=== PATIENT | male | born 1990 | race Caucasian/White ===

== ENCOUNTER 2019-11-15 02:04 | Observation (INO) | payer OTHER ==
[~2019-11-15] VITALS: Wt 86.3 kg
[2019-11-15] VITALS (10 sets, daily range): BP systolic 105–138; BP diastolic 51–73; PULSE 44–69; TEMP 97.5–98.3
--- NOTE | 2019-11-15 03:30 | NUR ---
Pt arrived to room 317 at this time as a direct admit from [facility]. Pt alert and oriented x4. Pt oriented to room and call light. Hematoma noted to right side of head with laceration that pt stated was glued at [place]. INT to left forearm patent and without complications. Pt denies chest pain or shortness of breath. Pt denies any other needs at this time. Pt instructed to call when getting out of bed. Call light within reach. Bed alarm on. Will continue to monitor.
[2019-11-15 04:36] LABS: BASO % 0.6 % (0.0-2.0); EOS % 0.3 % (0-4.0); GRAN % 62.7 % (42.2-75.2); HEMATOCRIT 41.5 % (42.0-52.0); HEMOGLOBIN 14.4 g/dl (13.5-18.0); LYMPH # 1.9 (1.2-3.4); LYMPH % 29.7 % (20.0-51.0); MEAN CELL VOLUME 86 fl (80.0-100.0); MEAN CORPUSCULAR HEMOGLOBIN 30 pg (27.0-31.0); MEAN CORPUSCULAR HGB CONC 35 g/dl (33.0-37.0); MEAN PLATELET VOLUME 11.6 fl (7.4-10.4); MONO # 0.4 (0.1-0.6); MONO % 6.5 % (1.7-9.3); PLATELET COUNT 220 K/mm3 (130-400); RED BLOOD COUNT 4.82 M/mm3 (4.20-5.60); REDCELL DISTRIBUTION WIDTH-CV 11.9 % (11.5-14.5)
[2019-11-15 04:44] LABS: CALCIUM 8.9 mg/dL (8.4-10.2); CREATININE, serum 0.68 (0.66-1.25); POTASSIUM 4.1 mmol/L (3.4-5.0)
[2019-11-15 04:59] LABS: TROPONIN-I 0.172 ng/mL (0.000-0.035)
--- NOTE | 2019-11-15 06:29 | NUR ---
Pt has had uneventful shift since arrival to nursing unit. Complaints of pain where he hit his head. PRN tylenol given per orders fore headache. IVF infusing per orders to left forearm IV site without complications. Pt denies any other needs at this time. Call light within reach. Bed alarm on. Will continue to monitor
--- NOTE | 2019-11-15 07:03 | NUR ---
Report given to STEPHEN Malone
--- NOTE | 2019-11-15 08:35 | NUR ---
Assessment complete. Patient awake, alert and oriented at this time. Ambulated to restroom, denied diziness or unsteadiness. No pain or discomfort at this time. IV site CD&I, IV fluids currently infusing. Pt is aware of his POC at this time. Pt is aware of fall risks precautions that are in place. Laceration on forehead in closed, notable bruise with swelling is still present, denies headache. No other needs were expressed at this time. Call light is in reach, bed alarm is set.
--- NOTE | 2019-11-15 09:32 | NUR ---
APRIL met with the patient to complete initial intake. The patient lives on [address] with his , Antionette. The patient is active duty . The patient denies DME use and is independent with ADLs. The patient receives medical care and prescriptions on at [place]. The patient does not have advanced directives in the EMR and was not interested in a DPOA-HC form. The patient plans to return home at discharge. There are no additional needs at this time.
--- NOTE | 2019-11-15 14:00 | NUR ---
PT REPORTED A DIZZY SPELL WHILE TURNING HIS HEAD. CHEACKED ON PATIENT AND HE STATED THAT IT HAD RESOLVED. i INFORMED DR. MANDUJANO AT THIS TIME. WILL CONTINUE TO MONITOR.
--- NOTE | 2019-11-15 16:10 | NUR ---
TELE CALLED TO NOTIFY OF BRADYCARDIA. PER AIR MOTOR REPAIRER REPORT PATIENT STATES HE RUNS BRADYCARDIC AT BASELINE. CHECKED PT AND HE WAS ASYMPTOMATIC. WILL CONTINUE TO MONITOR.
--- NOTE | 2019-11-15 16:48 | NUR ---
pT HAS BEEN STABLE THROUGH THE DAY. NO COMPLAINTS OF PAIN OR DISCOMFORT. SHOWERED INDEPENDENTLY WITH NO ISSUES. HE KJNOWS TO REPORT ANY DIZZINESS AND TO CALL BEFORE AMBULATING. NO OTHER NEEDS WERE EXPRESSED AT THIS TIME. WILL CONTINUE TO MONITOR. CALL LIGHT IS IN REACH.
--- NOTE | 2019-11-15 19:24 | NUR ---
Pt assessment completed. Pt resting in bed at this time. Pt alert and oriented x4. Pt denies pain at this time. IVF infusing per orders to left wrist IV site without complications. Pt denies any other needs at this time. Fall precautions in place. Bed alarm on. Call light within reach. Will continue to monitor.
[2019-11-16 03:30] VITALS: BP 124/53; PULSE 71; TEMP 97.5
--- NOTE | 2019-11-16 05:23 | NUR ---
Pt had uneventful shift. Pt stated that he rested well throughout the night. Pt denied pain throughout shift. INT to left wrist patent and free of complications. Pt denies any other needs at this time. Fall precautions in place. Bed alarm on. Call light within reach. Will continue to monitor.
--- NOTE | 2019-11-16 07:05 | NUR ---
Report given to STEPHEN Larson
[2019-11-16 07:19] LABS: BASO % 0.7 % (0.0-2.0); EOS % 0.7 % (0-4.0); GRAN # 3.2 (1.4-6.5); GRAN % 57.5 % (42.2-75.2); HEMATOCRIT 41.2 % (42.0-52.0); HEMOGLOBIN 14.4 g/dl (13.5-18.0); LYMPH # 1.9 (1.2-3.4); LYMPH % 33.6 % (20.0-51.0); MEAN CELL VOLUME 87 fl (80.0-100.0); MEAN CORPUSCULAR HEMOGLOBIN 30 pg (27.0-31.0); MEAN CORPUSCULAR HGB CONC 35 g/dl (33.0-37.0); MEAN PLATELET VOLUME 11.9 fl (7.4-10.4); MONO # 0.4 (0.1-0.6); MONO % 7.3 % (1.7-9.3); PLATELET COUNT 221 K/mm3 (130-400); RED BLOOD COUNT 4.76 M/mm3 (4.20-5.60); REDCELL DISTRIBUTION WIDTH-CV 11.9 % (11.5-14.5)
[2019-11-16 07:25] VITALS: BP 116/52; PULSE 87; TEMP 98.7
--- NOTE | 2019-11-16 07:30 | NUR ---
pt in bed with father at bedside. denies pain or discomfort. table at bedside with call light. no other needs at this time
[2019-11-16 07:42] LABS: CALCIUM 8.7 mg/dL (8.4-10.2); CREATININE, serum 0.67 (0.66-1.25); POTASSIUM 4.2 mmol/L (3.4-5.0)
--- NOTE | 2019-11-16 08:30 | NUR ---
REPORT GIVEN TO CARLOS A MITCHELL
--- NOTE | 2019-11-16 10:37 | NUR ---
Patient is alert and oriented. heart sound S1, S2. clear sound in all field. Father visiting at bedside. .
[2019-11-16 11:38] VITALS: BP 124/54; PULSE 45; TEMP 98.1
[2019-11-16 12:09] LABS: CHOLESTEROL RISK RATIO 4.2
--- NOTE | 2019-11-16 14:00 | NUR ---
The patient is to tentatively discharge home today, 11/15 with his . There are no additional needs.
[2019-11-16 16:10] VITALS: BP 121/54; PULSE 50; TEMP 98.1
--- NOTE | 2019-11-16 18:23 | NUR ---
Loop recorder was placed for the patient. patient was informed he can return to work on 11/23/19. patient was informed of his future appointment with his PCP and lump receiver. INT discontinued. markt discharged home with father.
== END 2019-11-16 15:00 | disposition home or self-care (01) ==
LOC: MEDICAL 02:04
PROVIDERS: Physician Assistant; Student in an Organized Health Care Education/Training Program; ADMIT Family Medicine
DX: R55 Syncope and collapse (principal); I08.0 Rheumatic disorders of both mitral and aortic valves; E16.2 Hypoglycemia, unspecified; R42 Dizziness and giddiness; R51 Headache; S00.03XA Contusion of scalp, initial encounter; F17.200 Nicotine dependence, unspecified, uncomplicated
CPT/HCPCS: 99239; A9500; G0378; J7030